=== PATIENT | female | born 1960 | race Caucasian/White ===

== ENCOUNTER 2024-12-19 16:36 | Emergency (ER) | payer MEDICARE, SELFPAY ==
[2024-12-19 16:48] VITALS: BP 148/75
[2024-12-19 17:19] LABS: % Basophils 0.7 % (0-2); % Eosinophils 0.8 % (0-6); % Immature Granulocytes 0.2 % (0-0.5); % Monocytes 6.5 % (1.7-9.3); % Neutrophils 61.8 % (42.2-75.2); Absolute Eosinophils 0.1 10^3/uL (0-0.7); Absolute Lymphocytes 1.8 10^3/uL (1.2-3.4); Absolute Monocytes 0.4 10^3/uL (0.1-0.6); Absolute Neutrophils 3.8 10^3/uL (1.4-6.5); Hematocrit 43.8 % (37.0-47.0); Hemoglobin 14.7 g/dL (12.0-16.0); Mean Corp Hgb Conc. 33.6 g/dL (33.0-37.0); Mean Corpuscular Hgb 30.1 pg (27.0-31.0); Mean Corpuscular Volume 89.8 fL (81.0-99.0); Mean Platelet Volume 8.5 fL (7.4-10.4); Nucleated Red Blood Cells % 0 %; Platelet Count 259 10^3/uL (130-400); Red Blood Cell Count 4.88 10^6/uL (4.20-5.40); Red Cell Dist. Width 12.9 % (11.5-14.5); White Blood Cell Count 6.1 10^3/uL (4.8-10.8)
[2024-12-19 17:30] LABS: ALT (SGPT) 20 U/L (0-35); AST (SGOT) 23 U/L (14-36); Albumin 4.9 g/dl (3.5-5.0); Alkaline Phosphatase 47 U/L (38-126); Blood Urea Nitrogen 11 mg/dl (7-17); Calcium 10.1 mg/dl (8.4-10.2); Carbon Dioxide 29 mmol/L (22-30); Chloride 99 mmol/L (98-107); Glucose 99 mg/dl (70-99); Potassium 4.6 mmol/L (3.5-5.1); Sodium 135 mmol/L (135-145); Total Bilirubin 0.8 mg/dl (0.2-1.3); Total Protein 7.9 g/dl (6.3-8.2); eGFR > 60.00
[2024-12-19 17:31] LABS: Lipase 180 U/L (23-300)
[2024-12-19 18:29] LABS: Urine Albumin Negative (Neg - Trace); Urine Bilirubin Negative (Negative); Urine Character Clear (Clear); Urine Color Yellow; Urine Glucose Negative (Negative); Urine Ketone Negative (Negative); Urine Leukocyte Negative (Negative); Urine Nitrite Negative (Negative); Urine Occult Blood Negative (Negative); Urine Specific Gravity 1.005 (<1.030); Urine Urobilinogen Negative (Neg - 1+); Urine pH 6.5 (5.0-9.0)
[2024-12-19 19:07] VITALS: BMI 27.5
[2024-12-19 19:08] VITALS: BP 117/77
--- NOTE | 2024-12-19 19:41 | ED.GENMED ---
History of Present Illness
General
Chief Complaint: Abdominal Pain
Source: patient
Exam Limitations: none
Time Seen by Provider: 12/19/24 18:02
Nursing documentation reviewed up to this point in time: agreed with
History of Present Illness
History of Present Illness:
Patient is a 64-year-old female presenting to the emergency department for evaluation after abnormal abdominal ultrasound report. Patient states she was seen at [facility] on Wednesday night after having acute onset right upper
quadrant abdominal pain around 4:30 PM. She states it was sharp and radiated to her back. Patient received an abdominal ultrasound although given the long wait times she left before being seen by provider, lab work, or results of ultrasound.
Patient states that pain did improve prior to leaving the hospital. Patient denies any pain yesterday or today. Vanita was contacted by the hospital and stated that her ultrasound performed on Wednesday showed that her gallbladder was
infected and she should be seen in emergency department.
Patient does state that she had a similar episode of pain Wednesday although resolved relatively quickly. She denies ever having associated fever, nausea, or vomiting with these painful episodes
On arrival today�patient denies any current abdominal pain. Patient denies any fever, chills, nausea, vomiting. No chest pain or shortness of breath.
Past History
Past History
ED Past Medical History: None
ED Past Surgical History: None
Social History
Tobacco: Former smoker
Alcohol: None
Personal:
Living: with family
Review of Systems
Review of Systems
Allergies reviewed?: Yes
All Other Systems: ROS reviewed and negative except as documented in HPI and ROS
Phy Exam
Physical Exam
Physical Exam:
Vitals: Hypertensive, otherwise vital signs stable. Afebrile
General: Patient is well appearing, no acute distress. Nontoxic appearing
Skin: Warm and dry, no rashes or lesions. No jaundice
Head: Normocephalic, atraumatic
Eyes: Sclera nonicteric. EOMs intact. No nystagmus.
Throat: Protecting airway
Neck: Normal ROM, no cervical spine tenderness, no meningismus
Cardiac: Regular rate and rhythm, no murmurs. No reproducible chest wall tenderness
Pulm: Normal respiratory effort, no wheezes, rales, rhonchi heard on exam.
Abdomen: Abdomen soft. No abdominal tenderness. Specifically no tenderness in right upper quadrant or epigastric region.
Extremities: No evidence of cyanosis or edema. Palpable pulses bilaterally
Neuro: AAOx3. Grossly intact.
Psychiatric: Normal affect.
Course
Orders/Labs/Results
Orders:
Orders
12/19/24 16:53
Electrocardiogram (*1) Urgent
Reason for Study: Abdominal Pain
EKG- Treatment ONCE
12/19/24 16:55
US Abdomen Complete/Upper Urgent
Comment:
Reason For Exam: RUQ pain
12/19/24 17:02
Complete Blood Count/With Diff Urgent
Comprehensive Metabolic Panel Urgent
Lipase Urgent
12/19/24 18:11
Urinalysis Reflex To Culture Urgent
Date Specimen was Collected: 12/19/24
Time Specimen was Collected: 18:00
12/19/24 19:17
Troponin I Urgent
12/19/24 17:02
12/19/24 17:02
Vital Signs
Initial and Last Documented VS:
Initial Vital Signs
Temp Pulse Resp BP Pulse Ox
98.3 F 86 16 148/75 95
12/19/24 16:48 12/19/24 16:48 12/19/24 16:48 12/19/24 16:48 12/19/24 16:48
Last Documented Vital Signs
Temp Pulse Resp BP Pulse Ox
98.3 F 77 18 117/77 95
12/19/24 16:48 12/19/24 19:08 12/19/24 20:05 12/19/24 19:08 12/19/24 19:08
MDM/Problems Addressed
Differential Diagnosis Includes:
Not limited to: Acute cholecystitis, biliary colic, choledocholithiasis, pancreatitis, unstable angina, etc.
MDM/Problems Addressed:
64-year-old female presenting following episode of what seems to be biliary colic 2 days ago, that has since resolved. She was contacted by hospital stating her ultrasound showed evidence of gallbladder infection and referred to emergency
department. Patient asymptomatic at this time, denies abdominal pain, nausea, vomiting, or fevers. No chest pain or shortness of breath. On arrival�patient mildly hypertensive, otherwise with stable vital signs. She is afebrile. On exam�patient
very well-appearing, conversational and nontoxic. Abdomen is soft with no abdominal tenderness specifically no right upper quadrant or epigastric tenderness. Basic labs were initiated in triage without any abnormalities. There is no leukocytosis.
Liver function all normal. A urine was obtained without any evidence of infection or abnormalities. Ultrasound obtained in emergency department today is normal and shows no evidence of gallstones or cholecystitis. No evidence of CBD dilation.
Ultimately�given patient afebrile with no leukocytosis and normal abdominal ultrasound without any current abdominal pain�extremely low suspicion for acute cholecystitis. An EKG was obtained which does show some very minor T wave abnormalities in
anterior leads. Although very low suspicion for emergent cardiac process or acute coronary syndrome�will screen with troponin.
Update: Troponin undetectable. Do not suspect ACS. Ultimately�workup in emergency department negative today. Patient denies any pain, nausea, or discomfort at all. Episode on Wednesday does sound like likely biliary colic although no evidence of
acute cholecystitis today. Feel patient is stable for discharge home. Did advise low-fat diet. Will provide referral information for GI and general surgery if needed in the future. Patient has follow-up with primary care in the morning. Close
return precautions discussed. Case discussed with attending physician
Chronic conditions affecting care:
N/A
Acute Exacerbation and/or Progression of Chronic Illness:
N/A
*Radiology
Radiology exam reviewed: radiology read reviewed
*Pulse Oximetry
Patient hypoxic: no
*EKG
Interpreted by ED Provider?: Yes
EKG Intrepretation Date: 12/19/24
Interpretation: abnormal
Comparison EKG: changes noted
Heart Rate: 72
Rhythm: sinus
[place]: normal axis
Interval: normal interval
QRS Pattern: normal QRS
Ischemia: T-wave inversion (T wave inversions in anterior leads)
*Supply Service Worker Interpretation
Rate: Supply Service Worker- N/A
*Critical Care Note
Total Time (30-74mins, 75-104mins- exclusive of procedures): Not Applicable
ED Attending Note
-
Portions of this chart may have been created with voice recognition software.� Occasional wrong word or��sound alike� substitutions may have occurred due to the inherent limitations of voice recognition software.
Discharge Plan
Departure
Patient Disposition: Home (Routine Discharge)
Date of Disposition: 12/19/24
Time of Disposition: 20:13
Patient with high blood pressure during this ER visit?: No
Condition: Good
Covid-19: Not Applicable
Discharge Problem:
History of biliary colic
Instructions: Gallstones - Discharge instructions, BLOOD PRESSURE
Referrals:
Tevin Lovelace MD [Active] - As needed
Gómez Gan MD [Active] - As needed
Gordon Mendez DO [Family Provider] - Keep scheduled appt
Activity Restrictions/Additional Instructions:
Return to the emergency department with any recurrent, persistent upper abdominal pain, fever/chills, nausea/vomiting, chest pain/shortness of breath, worsening current symptoms, or any other concerns
-As discussed your lab work and ultrasound performed in the emergency department today showed no acute abnormalities.
-Given history that is suggestive of biliary colic�I would recommend a low-fat diet. You can follow-up with gastroenterology/general surgery as needed.
-You should keep your appoint with your primary care tomorrow for follow-up
Monitor your symptoms closely and return to the emergency department with any acute worsening/new symptoms or any other concerns
Interventions
Interventions:
*Risk Screen - Suicide Last Done: 12/19/24 16:48
*General Assessment Last Done: 12/19/24 16:48
*Neglect/Abuse Screening Last Done: 12/19/24 19:00
ED- Fall Risk Assessment Last Done: 12/19/24 19:00
*ED COVID-19 Vaccine History Last Done: 12/19/24 19:00
*Nursing Disposition Last Done: 12/19/24 20:20
DQ-Tlbdfh-Yqzobidgmr Assessment Last Done: 12/19/24 19:00
Discharge Date and Time
Discharge Date/Time: 12/19/24 20:21
Print Language: NAMIBIAN
[2024-12-19 19:57] LABS: Troponin I < 0.012 ng/ml
== END 2024-12-19 20:21 | disposition home or self-care (01) ==
LOC: EMR 16:36
PROVIDERS: Physician Assistant; Physician Assistant Medical; EMERGENCY PHYSICIAN Student in an Organized Health Care Education/Training Program; FAMILY PHYSICIAN Family Medicine
DX: R10.9 Unspecified abdominal pain (principal); R93.5 Abnormal findings on diagnostic imaging of other abdominal regions, including retroperitoneum; Z87.19 Personal history of other diseases of the digestive system; Z87.891 Personal history of nicotine dependence; I10 Essential (primary) hypertension
CPT/HCPCS: 99285; 76700; 80053; 81003; 83690; 84484; 85025; 93005